=== PATIENT | male | born 1955 | race African-American/Black ===

== ENCOUNTER 2022-10-20 10:34 | Inpatient (IN) | payer OTHER ==
[~2022-10-20] VITALS: Ht 182.9 cm; Wt 69.1 kg
[2022-10-20] MEDS ORDERED: IPRATROPIUM BROM 0.5 MG/2.5ML INH SOL NEB ONE (11:00)
[2022-10-20] MEDS ORDERED: DexAMETHasone 4 MG TAB PO ONE (11:00)
[2022-10-20] MEDS ORDERED: ALBUTEROL SULF 2.5 MG/0.5ML(0.5%) NEB SOLN NEB ONE ×2 (11:00→14:00)
[2022-10-20] MEDS ORDERED: ALBUTEROL MEDNEB 2.5 mg/3ml NEB ONE ×2 (11:04→13:56)
[2022-10-20] MEDS ORDERED: DOXYCYCLINE 100 MG TAB/CAP PO ONE (11:30)
[2022-10-20] MEDS ORDERED: MAGNESIUM SULFATE 1GM/100ML 100 ML IV SCH (11:30)
[2022-10-20 11:32] LABS: Basophils # (auto) 0 10 ^3/uL (0-0.2); Basophils % (auto) 0.5 % (0.0-2.0); Eosinophils # (auto) 0.1 10 ^3/uL (0-0.8); Eosinophils % (auto) 1.1 % (0.0-7.0); Hematocrit 44.5 % (41.0-53.0); Hemoglobin 14.8 g/dL (13.5-17.5); Lymphocytes # (auto) 2.5 10 ^3/uL (0.4-5.4); Lymphocytes % (auto) 26.7 % (10.0-50.0); Mean Corpuscular Hemoglobin 32.8 pg (28.0-32.0); Mean Corpuscular Hgb Conc. 33.2 g/dL (32.0-36.0); Mean Corpuscular Volume 98.7 fL (80.0-100.0); Neutrophils # (auto) 5.9 10 ^3/uL (1.6-8.6); Neutrophils % (auto) 61.7 % (37.0-80.0); Nucleated Red Blood Cells % 0.1 %; Red Blood Cells 4.51 10^6/uL (4.5-5.90); White Blood Cell 9.5 10^3/uL (4.4-10.8)
[2022-10-20 11:53] LABS: Albumin 3.6 g/dL (3.4-5.0); Calcium 8.9 mg/dL (8.5-10.1); Potassium 3.7 mmol/L (3.5-5.1)
[2022-10-20 11:58] LABS: BUN/Creatinine Ratio 15.2
[2022-10-20] MEDS ORDERED: cefTRIAXone 1GM/50ML D5W 50 ML IV SCH (14:15)
[2022-10-20] MEDS ORDERED: LORazepam 0.5 MG TAB PO PRN (14:15)
[2022-10-20] MEDS ORDERED: ACETAMINOPHEN 325 MG TAB PO PRN (14:15)
[2022-10-20] MEDS ORDERED: MORPHINE SULFATE INJ 2 MG/ml SYRG IV PRN (14:15)
[2022-10-20] MEDS ORDERED: SODIUM CHLORIDE 0.9% 1,000 ML IV SCH (14:15)
[2022-10-20] MEDS ORDERED: HYDROcodone-ACET 5/325MG TAB PO PRN (14:15)
[2022-10-20] MEDS ORDERED: AZITHROMYCIN 500MG/ 250ML 250 ML IV SCH (14:15)
[2022-10-20] MEDS ORDERED: ONDANSETRON HCL 4 MG/2 ML VIAL IV PRN (14:15)
[2022-10-20] MEDS ORDERED: DOCUSATE SOD 100 MG CAP PO PRN (14:15)
[2022-10-20] MEDS ORDERED: MAALOX PLUS or MAALOX 30 ML PO PRN (14:15)
[2022-10-20 14:39] VITALS: BP 95/69
[2022-10-20] MEDS ORDERED: DOXY-332 PO (15:53)
[2022-10-20] MEDS ORDERED: IPRATROPIUM BROM 0.5 MG/2.5ML INH SOL NEB SCH (18:00)
[2022-10-20] MEDS ORDERED: ALBUTEROL SULF 2.5 MG/0.5ML(0.5%) NEB SOLN NEB SCH (18:00)
[2022-10-20] MEDS ORDERED: methylPREDNISolone SOD SUCC 40 MG/ML VL IV SCH (22:00)
== END 2022-10-20 16:33 | disposition left against medical advice (07) | DRG 203 ==
LOC: ER 10:34 → TELE 14:13
PROVIDERS: ADMIT Hospitalist; ATTEND Hospitalist
DX: J45.902 Unspecified asthma with status asthmaticus (principal); I10 Essential (primary) hypertension; Z20.822 Contact with and (suspected) exposure to COVID-19; J98.4 Other disorders of lung; Z87.891 Personal history of nicotine dependence
CPT/HCPCS: 36415; 71046; 80053; 83735; 83880; 84484; 85025; 85379; 87426; 93005; 94640; 99291; G0378

== ENCOUNTER → 2024-08-18 | Outpatient (CLI) | payer OTHER ==
[~2024-08-18] MED LIST: DOXY100C79 PO
[2024-08-18 14:59] LABS: Basophils # (auto) 0.1 10 ^3/uL (0-0.2); Basophils % (auto) 1.2 % (0.0-2.0); Monocytes # (auto) 0.8 10 ^3/uL (0-1.3)
[2024-08-18 15:01] LABS: Eosinophils # (auto) 0.1 10 ^3/uL (0-0.8); Eosinophils % (auto) 0.8 % (0.0-7.0); Hematocrit 42.4 % (41.0-53.0); Hemoglobin 14.3 g/dL (13.5-17.5); Lymphocytes # (auto) 2.5 10 ^3/uL (0.4-5.4); Lymphocytes % (auto) 32.2 % (10.0-50.0); Mean Corpuscular Hemoglobin 34.4 pg (28.0-32.0); Mean Corpuscular Hgb Conc. 33.8 g/dL (32.0-36.0); Mean Corpuscular Volume 101.9 fL (80.0-100.0); Monocytes % (auto) 10.5 % (0.0-12.0); Neutrophils # (auto) 4.3 10 ^3/uL (1.6-8.6); Neutrophils % (auto) 55.3 % (37.0-80.0); Platelet Count (auto) 171 10^3/uL (140-450); Red Blood Cells 4.16 10^6/uL (4.5-5.90); Red Cell Distribution Width 13.1 % (11.8-14.3); White Blood Cell 7.8 10^3/uL (4.4-10.8)
[2024-08-18 15:34] LABS: Albumin 4.2 g/dL (3.2-4.8); Alkaline Phosphatase 85 U/L (46-116); Anion Gap 5 (5-15); BUN/Creatinine Ratio 16.7 (10.0-20.0); Blood Urea Nitrogen 19 mg/dL (9-23); Calcium 9.9 mg/dL (8.7-10.4); Chloride 103 mmol/L (98-107); Cholesterol 164 mg/dL (< 200); Glucose 87 mg/dL (74-106); LDL Cholesterol 74 mg/dL (< 100); Potassium 3.7 mmol/L (3.5-5.1); Sodium 143 mmol/L (136-145); Triglycerides 117 mg/dL (< 150)
[2024-08-18 15:37] LABS: Alanine Aminotransferase 166 U/L (7-40); Aspartate Aminotransferase 144 U/L (13-40); Carbon Dioxide 35 mmol/L (20-31); Folate (Folic Acid) 20.39 ng/mL (>5.38); HDL Cholesterol 62 mg/dL (40-59); Total Protein 8.3 g/dL (5.7-8.2)
[2024-08-18 15:46] LABS: Uric Acid 7.6 mg/dL (3.7-9.2)
== END | disposition home or self-care (01) ==
LOC: LAB 14:06
PROVIDERS: ATTEND Internal Medicine
DX: D51.9 Vitamin B12 deficiency anemia, unspecified (principal); E55.9 Vitamin D deficiency, unspecified; R68.89 Other general symptoms and signs; E61.2 Magnesium deficiency; R94.6 Abnormal results of thyroid function studies; E79.0 Hyperuricemia without signs of inflammatory arthritis and tophaceous disease; R73.09 Other abnormal glucose; R82.90 Unspecified abnormal findings in urine
CPT/HCPCS: 36415; 80053; 80061; 82306; 82607; 82746; 84443; 84550; 85025

== ENCOUNTER 2024-09-23 00:16 | Inpatient (IN) | payer OTHER ==
[2024-09-23] VITALS (13 sets, daily range): BP systolic 112–140; BP diastolic 58–88; PULSE 61–86; RESP 14–20; TEMP 36.7; O2SAT 93–99
[~2024-09-23] VITALS: Ht 185.4 cm; Wt 72.7 kg
[2024-09-23] MEDS ORDERED: ASPirin 81 mg TAB PO ONE (00:45)
[2024-09-23 01:05] LABS: Basophils # (auto) 0 10 ^3/uL (0-0.2); Basophils % (auto) 0.1 % (0.0-2.0); Eosinophils # (auto) 0.1 10 ^3/uL (0-0.8); Eosinophils % (auto) 1.5 % (0.0-7.0); Hemoglobin 12.4 g/dL (13.5-17.5); Lymphocytes # (auto) 2.4 10 ^3/uL (0.4-5.4); Lymphocytes % (auto) 26.2 % (10.0-50.0); Mean Corpuscular Hgb Conc. 32.6 g/dL (32.0-36.0); Mean Corpuscular Volume 101.1 fL (80.0-100.0); Monocytes # (auto) 0.8 10 ^3/uL (0-1.3); Neutrophils # (auto) 5.8 10 ^3/uL (1.6-8.6); Neutrophils % (auto) 63.2 % (37.0-80.0); Nucleated Red Blood Cells % 0.1 %; Platelet Count (auto) 145 10^3/uL (140-450); Red Blood Cells 3.76 10^6/uL (4.5-5.90); Red Cell Distribution Width 12.8 % (11.8-14.3); White Blood Cell 9.1 10^3/uL (4.4-10.8)
--- NOTE | 2024-09-23 01:11 | ED.PDOC ---
History of Present Illness HPI Comments 69 y/o M, with a Hx of asthma, COPD w/3LPM home O2, HTN, and former tobacco abuse, is BIBA for c/o epigastric abdominal and sternal chest pain, shortness of breath, and nonproductive cough, today. Patient endorses on being short of breath "all the time" and called EMS, primarily, due to being no longer able to tolerate pain that has been constant since initial, unprovoked onset 2 weeks ago. He comments on pain being a 10/10 in severity. Per EMS report, patient was found on scene outside his house without his O2, with labored breathing and expiratory wheezes, a respiratory rate fo 26, a SpO2 of 90%RA, and a blood pressure of 70/42. En route, patient was given 2x DuoNebulizer breathing treatments and 600ml normal saline bolus (blood pressure improved, temporarily, to a systolic value of 90 prior to returning to initial value he was found with). Upon arrival to ED, patient endorses on breathing difficulty resolving but still complains of pain. He also comments on using his inhaler, earlier, to no relief or improvement with difficulty breathing. He endorses on no recent travel, sick contact, strenuous activities, or other additional relevant or pertinent information. Patient denies having any nausea, vomiting, palpitations, fever, chills, or other associated symptoms or modifiers at this time. Chief Complaint: Shortness of Breath Time Seen by MD: 00:30 Reviewed Notes: Nurses Notes, Fountain Manager Notes, Medications, Allergies Allergies: Coded Allergies: Aspirin (Verified Allergy, Unknown, nausea , 10/20/22) Ibuprofen (Verified Allergy, Unknown, nausea , 10/20/22) Home Meds Active Scripts Doxycycline (Monohydrate) (Doxycycline) 100 Mg Cap, 100 MG PO BID for 5 Days, #10 CAP Prov:ANNITA LAMBERT MD 10/20/22 Information Source: Patient, Emergency Med Personnel Mode of Arrival: EMS Severity: Moderate Timing: Weeks Duration: Since onset Prehospital treatment: 12 Lead EKG, Breathing Tx, Medical Doctor Nuclear Medicine, IVF Review of Systems: REVIEW OF SYSTEMS: No fever, no chills, or fatigue HEENT: No sore throat, no earache, no congestion, no neck pain. Cardiac: Sternal chest pain. No palpitations. Lungs: Shortness of breath, no cough. GI: Epigastric abdominal pain, no nausea, no vomiting, no diarrhea, no constipation. : No dysuria, frequency, or urgency. No hematuria. Musculoskeletal: No joint pain , no joint swelling, no extremity edema. Skin: No rash, no itching. Neuro: No headache, no dizziness, no weakness Vital Signs Vital Signs Date Time Temp Pulse Resp B/P (MAP) Pulse Ox O2 Delivery O2 Flow Rate FiO2 09/23/24 04:15 18 98 Nasal Cannula* 3 32 09/23/24 04:00 73 136/68 (90) 09/23/24 01:51 98.3 98.3 Physical Exam General: Awake, alert and oriented. No acute distress. Skin: Skin in warm, dry and intact. Appropriate color for ethnicity. Nailbeds pink with no cyanosis. HEENT: The head is normocephalic and atraumatic. Conjunctivae are clear without exudates or hemorrhage. Sclera is non-icteric. EOM are intact. No signs of nystagmus. Eyelids are normal in appearance without swelling or lesions. Oral mucosa is pink and moist Neck: The neck is supple with normal range of motion. No JVD. Cardiac: Heart rate and rhythm are normal. No murmurs, gallops, or rubs are auscultated. Sternal chest wall tenderness. Respiratory: No signs of respiratory distress. Lung sounds are clear in all lobes bilaterally without rales, ronchi, or wheezes. Abdominal: Epigastric tenderness. Abdomen is otherwise soft, without distention. Bowel sounds are present and normoactive in all four quadrants. Extremities: Upper and lower extremities are atraumatic in appearance without deformity or edema. Neurological: The patient is awake, alert and oriented to person, place, and time with normal speech. Speech is clear. There is no facial asymmetry. Psychiatric: Appropriate mood and affect. Good judgement and insight. No visual or auditory hallucinations. Past Medical History PAST MEDICAL HISTORY: Asthma, COPD (w/3LPM home O2 ), HTN Surgical History: Denies all surgeries Family History Family History: Reviewed,noncontributory to illness Social History Smoker: Quit Less Than 1 Year, Cigarettes Alcohol: Denies ETOH Use Drugs: Denies Drug Use Lives In: Home Was a procedure done? Was a procedure done?: No EKG EKG : Pulse Rate (adult): 96 [place]: Normal Cardiac Rhythm: NSR Block: None Hypertrophy: None ST: Normal Differential Dx Considerations may include: gastritis, gastroenteritis, PUD, GERD, spoiled food, viral syndrome, FL, PE, PNA, COPD exacerbation, angina, asthma exacerbation, pericarditis X-Ray, Labs, Meds, VS Vital Signs Date Time Temp Pulse Resp B/P (MAP) Pulse Ox O2 Delivery O2 Flow Rate FiO2 09/23/24 04:15 18 98 Nasal Cannula* 3 32 09/23/24 04:00 73 16 136/68 (90) 95 09/23/24 01:53 86 14 99 Nasal Cannula* 3 32 09/23/24 01:51 98.3 80 14 103/57 (72) 98 98.3 09/23/24 01:11 96 09/23/24 00:28 98.6 98 26 79/43 (55) 95 09/23/24 00:23 96 Lab Test 09/23/24 03:37 09/23/24 03:00 09/23/24 01:44 09/23/24 00:48 Range/Units Troponin I High Sensitivity 5 4 4 </=54 ng/L Lactic Acid Level 1.4 2.1 *H 0.4-2.0 mmol/L White Blood Count 9.1 4.4-10.8 10^3/uL Red Blood Count 3.76 L 4.5-5.90 10^6/uL Hemoglobin 12.4 L 13.5-17.5 g/dL Hematocrit 38.0 L 41.0-53.0 % Mean Corpuscular Volume 101.1 H 80.0-100.0 fL Mean Corpuscular Hemoglobin 33.0 H 28.0-32.0 pg Mean Corpuscular Hemoglobin Concent 32.6 32.0-36.0 g/dL Red Cell Distribution Width 12.8 11.8-14.3 % Platelet Count 145 140-450 10^3/uL Mean Platelet Volume 9.6 6.9-10.8 fL Neutrophils (%) (Auto) 63.2 37.0-80.0 % Lymphocytes (%) (Auto) 26.2 10.0-50.0 % Monocytes (%) (Auto) 9.0 0.0-12.0 % Eosinophils (%) (Auto) 1.5 0.0-7.0 % Basophils (%) (Auto) 0.1 0.0-2.0 % Neutrophils # (Auto) 5.8 1.6-8.6 10 ^3/uL Lymphocytes # (Auto) 2.4 0.4-5.4 10 ^3/uL Monocytes # (Auto) 0.8 0-1.3 10 ^3/uL Eosinophils # (Auto) 0.1 0-0.8 10 ^3/uL Basophils # (Auto) 0 0-0.2 10 ^3/uL Nucleated Red Blood Cells 0.1 % Sodium Level 144 136-145 mmol/L Potassium Level 4.0 3.5-5.1 mmol/L Chloride Level 106 98-107 mmol/L Carbon Dioxide Level 33 H 20-31 mmol/L Anion Gap 5 5-15 Blood Urea Nitrogen 23 9-23 mg/dL Creatinine 1.26 0.700-1.30 mg/dL Glomerular Filtration Rate Calc 61 >90 mL/min BUN/Creatinine Ratio 18.3 10.0-20.0 Serum Glucose 113 H 74-106 mg/dL Calcium Level 9.3 8.7-10.4 mg/dL Total Bilirubin 0.5 0.2-1.0 mg/dL Aspartate Amino Transferase (AST) 82 H 13-40 U/L Alanine Aminotransferase (ALT) 100 H 7-40 U/L Alkaline Phosphatase 70 46-116 U/L B-Type Natriuretic Peptide 11.90 0-100 pg/mL Total Protein 6.6 5.7-8.2 g/dL Albumin 3.5 3.2-4.8 g/dL Current Medications Medications (Trade) Dose Ordered Sig/[place] Route Start Time Stop Time Status Last Admin Sodium Chloride 1,000 ml @ 1,000 mls/hr Q1H ONCE IV 09/23/24 00:45 09/23/24 01:44 DC 09/23/24 01:35 Al Hydrox/Mg Hydrox/Simethicone (Maalox Plus) 30 ml ONCE ONCE PO 09/23/24 01:00 09/23/24 01:01 DC 09/23/24 01:34 Lidocaine HCl (Xylocaine 2% Viscous) 10 ml ONCE ONCE PO 09/23/24 01:00 09/23/24 01:01 DC 09/23/24 01:34 Ceftriaxone Sodium 50 ml @ 100 mls/hr ONCE ONCE IV 09/23/24 03:15 09/23/24 03:44 DC 09/23/24 03:29 Albuterol (Ventolin Medneb) 2.5 mg ONCE ONCE NEB 09/23/24 04:15 09/23/24 04:16 DC 09/23/24 04:[address] [address] Ph: [phone] DIAGNOSTIC IMAGING Diagnostic Imaging Report : [id number] Signed PATIENT: YUSUF APARICIO ACCT: [id number] UNIT: [id number] : 1955 LOC: ER ROOM / BED: / AGE / SEX: 69 / M ADM STATUS: REG ER SERVICE ORDERING PHYSICIAN: ADRIANNA ROE MD PROCEDURE(s): CXR1 - CHEST XRAY 1 VIEW REASON: cp ORDER NUMBER(s): [id number], ACCESSION NUMBER(s): [id number] Examination: CXR1 Clinical Indication: cp. Comparison: None. Technique: Frontal radiograph of the chest was obtained. Findings: Limited evaluation, due to patients body habitus. Inhomogeneous radiopacities in right lower lung, suggestive of patchy consolidation. No pleural effusion on either side in current study. There is no pneumothorax. No evidence of cardiomegaly. Ectatic thoracic aorta. No acute osseous abnormality is seen. Impression: Patchy consolidation in right lower lung. Advised further evaluation with CT chest without contrast, if clinically indicated. Electronically Signed 09/23/2024 02:23 Damon Tadeo ATED BY: CARLYLE RESENDIZ MD DICTATED DATE/TIME: 09/23/24222 SIGNED BY: CARLYLE RESENDIZ MD SIGNED DATE/TIME: 09/23/24222 CC: Time of 1ST Reevaluation: 01:00 Reevaluation 1ST: Unchanged Patient Education/Counseling: Diagnosis, Treatment Family Education/Counseling: No Family Present Departure 1 Departure Time of Disposition: 04:07 Impression: Primary Impression: Pneumonia Disposition: 09 ADMITTED INPATIENT Condition: Stable Comments 69-year-old male who presented with shortness of breath, chest x-ray suggestive of pneumonia. Antibiotics and fluids initiated. Lactic acid mildly elevated. Patient admitted for further treatment, evaluation and monitoring. Critical Care Note Critical Care Time?: No Stability Stability form required: No Heart Score Heart Score: Heart Score Response (Comments) Value History N/A 0 EKG N/A 0 Age N/A 0 Risk Factors N/A 0 Troponin N/A 0 Total 0 I personally scribed for ADRIANNA ROE MD ([email or web address]) on 09/23/24 at 01:11. Electronically submitted by Gregory Beth ([email or web address]). I personally scribed for ADRIANNA ROE MD ([email or web address]) on 09/23/24 at 03:38. Electronically submitted by Gregory Beth [email or web address]). ADRIANNA ROE MD Sep 23, 2024 01:11
[2024-09-23 01:20] LABS: Albumin 3.5 g/dL (3.2-4.8); Alkaline Phosphatase 70 U/L (46-116); Anion Gap 5 (5-15); BUN/Creatinine Ratio 18.3 (10.0-20.0); Calcium 9.3 mg/dL (8.7-10.4); Chloride 106 mmol/L (98-107); Sodium 144 mmol/L (136-145)
[2024-09-23 01:21] LABS: Bilirubin, Total 0.5 mg/dL (0.2-1.0); Total Protein 6.6 g/dL (5.7-8.2)
[2024-09-23 01:34] LABS: Alanine Aminotransferase 100 U/L (7-40); Aspartate Aminotransferase 82 U/L (13-40); Blood Urea Nitrogen 23 mg/dL (9-23); Carbon Dioxide 33 mmol/L (20-31); Glucose 113 mg/dL (74-106)
[2024-09-23] MEDS: MAALOX PLUS or MAALOX 30 ML PO ONE (01:34)
[2024-09-23] MEDS: LIDOCAINE VISCOUS 2% 15ML UD PO ONE (01:34)
[2024-09-23] MEDS: SODIUM CHLORIDE 0.9% 1,000 ML IV ONE (01:35)
[2024-09-23 01:36] LABS: Lactic Acid w/Reflex 2.1 mmol/L (0.4-2.0)
--- NOTE | 2024-09-23 02:25 | DVH ---
Examination: CXR1 Clinical Indication: cp. Comparison: None. Technique: Frontal radiograph of the chest was obtained. Findings: Limited evaluation, due to patients body habitus. Inhomogeneous radiopacities in right lower lung, suggestive of patchy consolidation. No pleural effu daniel on either side in current study. There is no pneumothorax. No evidence of cardiomegaly. Ectatic thoracic aorta. No acute osseous abnormality is seen. Impression: Patchy consolidation in right lower lung. Advised further evaluation with CT chest without contrast, if clinically indicated. Electronically Signed 09/23/2024 02:23 Damon Tadeo
[2024-09-23] MEDS: IOHEXOL 350 MG/ML 100ML IJ ONE (02:30)
[2024-09-23] MEDS: cefTRIAXone 1GM/50ML D5W 50 ML IV ONE (03:29)
--- NOTE | 2024-09-23 04:01 | DVH ---
Examination: CTACH CLINICAL INDICATION: Aorta . COMPARISON: None. CONTRAST USED: Intravenous. TECHNIQUE: Axial images were obtained through the thorax with contrast. Appropriate 3D, MPR, CMPR, thick and thin MIP and VRT view were obtained from multiple phase reconstructions. CT scan done accor ding to ALARA (As Low as Reasonably Achievable). Multiplanar reconstructions were obtained. FINDINGS: Lower neck and thyroid: Appears normal. The aorta appears normal. No evidence of aneurysm or dissection is seen. No mediastinal masses or lymphadenopathy is seen. Central pulmonary arteries appear unremarkable. The right and left main pulmonary arteries appear no rmal. No evidence of filling defect is seen. Centriacinar and paraseptal emphysematous changes are seen in both lungs. Few subpleural bullae are seen in both upper lobes. Rest of the lung parenchyma appears unremarkable. No pleural effusion is seen. No pericardial effusion is seen. Degenerative changes are seen in the thoracic spine. Visualized Upper Abdomen: Visualized upper abdominal structures appear unremarkable. Gallbladder: Appears normal. No radiopaque calculi. Adrenal glands: Appear normal. No obvious nodule. Liver: Appears normal. No obvious focal lesion. Spleen: Appears normal. Pancreas: Appears normal. Kidneys: Appear normal. IMPRESSION: 1. No evidence of pulmonary arterial thromboembolism. 2. No evidence of aortic aneurysm or dissection is seen. 3. Centriacinar and paraseptal emphysematous changes are seen in both lungs. 4. Few subpleural bullae are seen in both upper lobes. 5. Additional chronic and/or ancillary findings as detailed above. 6. Suggest clinical correlation and follow-up as clinically deemed necessary. Electronically Signed 09/23/2024 04:01 Damon Tadeo
[2024-09-23] MEDS: ALBUTEROL SULF 2.5 MG/0.5ML(0.5%) NEB SOLN NEB ONE (04:23)
[2024-09-23] MEDS ORDERED: NITROGLYCERIN 0.4 MG SL TAB SL PRN (05:30)
--- NOTE | 2024-09-23 05:44 | DVHHPRES ---
History of Present Illness Resident Creating Document: CRYSTAL BARRERA RESDIENT History of Present Illness This is a 69-year-old male with past medical history of COPD (on 3 L of oxygen at home), asthma, hypertension, presented to the hospital with shortness of platelet chest pain. Patient has chronic shortness of breath, which has worsened since 1 days which was associated with a active cough, weakness and nausea. The patient also complained of epigastric pain since 2 weeks, which is burning in nature, /10, with no radiation. The patient is using ibuprofen for the body pain. Patient denies fever, vomiting chest pain, headache, visual change, and any recent sick contact. PMHx: COPD, asthma, hypertension PSHx: Noncontributory Social history: Patient lives at home with family Home medication: Lisinopril, amlodipine, rescue inhaler, montelukast, gabapentin, ibuprofen, oxycodone, PCP: Dr. Froylan Purvis Review of Systems Review of Systems General: Reports generalized weakness HEENT: No headaches, visiual changes, hearing loss, tinnitus, nasal congestion and discharge, and sore throat. Cardiovascular: Denies chest pain, palpitations, dyspnea on exertion, orthopnea, or claudication. Respiratory: Reports shortness of breaths, productive cough Gastrointestinal: Reports epigastric pain Genitourinary: No dysuria, hematuria, discharge, frequency, urgency, nocturia, incontinence, and urinary retention. Endocrine: No heat or cold intolerance, polydipsia, polyuria, and polyphagia. Neurological: No dizziness, extremity weakness and numbness, tremors, gait disturbance, seizures, and memory impairment. Psychiatric: Denies depression, anxiety,or insomnia. Musculoskeletal: Denies neck pain, stiffness and swelling, back pain, muscle weakness, joint pain, stiffness, swelling, or limited range of motion. Allergies: Coded Allergies: Aspirin (Verified Allergy, Unknown, nausea , 10/20/22) Ibuprofen (Verified Allergy, Unknown, nausea , 10/20/22) Medications Current Medications Medications Dose Ordered Sig/[place] Route Start Time Stop Time Status Last Admin Dose Admin Nitroglycerin 0.4 mg Q5MINP PRN SL 09/23/24 05:30 UNV Exam Vital Signs Vital Signs Date Time Temp Pulse Resp B/P (MAP) Pulse Ox O2 Delivery O2 Flow Rate FiO2 09/23/24 04:15 18 98 Nasal Cannula* 3 32 09/23/24 04:00 73 136/68 (90) 09/23/24 01:51 98.3 98.3 Exam General Appearance: Alert, Oriented X3, Cooperative, No acute distress HEENT: Atraumatic, PERRLA, EOMI, Mucous membrane moist/pink Respiratory: Bilateral lower zone crackles Cardiovascular: Regular rate, Normal S1, Normal S2, No murmurs, no chest wall tenderness Abdominal: Epigastric tenderness Extremities: No clubbing, No cyanosis, No edema, Normal pulses, No tenderness/swelling Skin: No rashes, No breakdown, No significant lesion Neuro: Normal gait, Normal speech, Strength at 5/5 X4 ext, Normal tone, Sensation intact, Cranial nerves 3-12 NL, Reflexes 2+ Psych/Mental Status: Mental status NL, Mood NL Labs/Xrays Labs Test 09/23/24 03:37 09/23/24 03:00 09/23/24 00:48 Range/Units Troponin I High Sensitivity 5 </=54 ng/L Lactic Acid Level 1.4 0.4-2.0 mmol/L White Blood Count 9.1 4.4-10.8 10^3/uL Red Blood Count 3.76 L 4.5-5.90 10^6/uL Hemoglobin 12.4 L 13.5-17.5 g/dL Hematocrit 38.0 L 41.0-53.0 % Mean Corpuscular Volume 101.1 H 80.0-100.0 fL Mean Corpuscular Hemoglobin 33.0 H 28.0-32.0 pg Mean Corpuscular Hemoglobin Concent 32.6 32.0-36.0 g/dL Red Cell Distribution Width 12.8 11.8-14.3 % Platelet Count 145 140-450 10^3/uL Mean Platelet Volume 9.6 6.9-10.8 fL Neutrophils (%) (Auto) 63.2 37.0-80.0 % Lymphocytes (%) (Auto) 26.2 10.0-50.0 % Monocytes (%) (Auto) 9.0 0.0-12.0 % Eosinophils (%) (Auto) 1.5 0.0-7.0 % Basophils (%) (Auto) 0.1 0.0-2.0 % Neutrophils # (Auto) 5.8 1.6-8.6 10 ^3/uL Lymphocytes # (Auto) 2.4 0.4-5.4 10 ^3/uL Monocytes # (Auto) 0.8 0-1.3 10 ^3/uL Eosinophils # (Auto) 0.1 0-0.8 10 ^3/uL Basophils # (Auto) 0 0-0.2 10 ^3/uL Nucleated Red Blood Cells 0.1 % Sodium Level 144 136-145 mmol/L Potassium Level 4.0 3.5-5.1 mmol/L Chloride Level 106 98-107 mmol/L Carbon Dioxide Level 33 H 20-31 mmol/L Anion Gap 5 5-15 Blood Urea Nitrogen 23 9-23 mg/dL Creatinine 1.26 0.700-1.30 mg/dL Glomerular Filtration Rate Calc 61 >90 mL/min BUN/Creatinine Ratio 18.3 10.0-20.0 Serum Glucose 113 H 74-106 mg/dL Calcium Level 9.3 8.7-10.4 mg/dL Total Bilirubin 0.5 0.2-1.0 mg/dL Aspartate Amino Transferase (AST) 82 H 13-40 U/L Alanine Aminotransferase (ALT) 100 H 7-40 U/L Alkaline Phosphatase 70 46-116 U/L B-Type Natriuretic Peptide 11.90 0-100 pg/mL Total Protein 6.6 5.7-8.2 g/dL Albumin 3.5 3.2-4.8 g/dL Assessment/Plan Assessment/Plan Acute exacerbation of COPD Pneumonia, likely due to Gram-positive Gram-negative bacterial/viral chronic hypoxic respiratory, likely due to COPD Sepsis, likely due to pneumonia History of asthma Chest x-ray, shows patchy consolidation in right lower lung Chest CT scan shows, centriacinar and paraseptal emphysematous changes are seen in both lungs and few subpleural bullae are seen in both upper lobes Check MRSA nares, COVID-19, flu, blood/sputum culture Empiric antibiotic azithromycin and ceftriaxone Breathing treatment q.4 hours Methylprednisolone 40 mg daily Continue montelukast IV fluids Possoble Gastritis, likely due to Ibuprofen Discontinue Ibuprofen Protonix History of hypertension Held antihypertensive medication, due to low BP Transaminitis, monitoring Mild anemia, hypochromic microcytic Ruled out pulmonary emboli Chest CT shows no pulmonary emboli DIET: Cardiac diet DVT PROPHYLAXIS: Lovenox GI PROPHYLAXIS:: Protonix CODE STATUS: Goal of care discussed with the and 21 minutes, full code DISPOSITION: Med/surge Patient's status discussed with the patient Case discussed with Dr. Ratliff Plan discussed with: Patient, Other (RN) My Orders Orders - CRYSTAL BARRERA RESDIVERNON Procedure Category Date Status Time Admit ADMIT 09/23/24 Transmitted 05:25 Nitroglycerin PHA 09/23/24 Logged Sublingual (Ntrostat 05:30 Oxygen By Nasal RT 09/23/24 Transmitted Cannula 05:25 Stat Ekg For Chest RUFINA 09/23/24 In Process Pain 05:25 Ceftriaxone Ivpb PHA 09/23/24 Verified Rocephin 09:00 Azithromycin 500mg/ PHA 09/23/24 Verified 250ml (Zithromax 50 10:00 Ipratropium Medneb PHA 09/23/24 Verified (Atrovent Medneb) 06:00 Montelukast Tablet PHA 09/23/24 Verified (Singulair Tablet) 22:00 Montelukast Tablet PHA 09/23/24 Verified (Singulair Tablet) 05:30 Enoxaparin Sodium PHA 09/23/24 Verified (Lovenox) 10:00 Pantoprazole PHA 09/23/24 Verified (Protonix) 10:00 Methylprednisolone PHA 09/23/24 Verified Sod Succ (Solu Medrol 10:00 Covid19 Antigen [facility] LAB 09/23/24 Verified Rapid Influenza A&B LAB 09/23/24 Transmitted 05:26 Urinalysis LAB 09/23/24 Verified 05:26 Mrsa Screen DONALD 09/23/24 Verified 05:26 Respiratory Culture DONALD 09/23/24 Verified W/ Gs 05:26 Cardiac DIET 09/23/24 Verified Diet-2gna,Lofat,Lochol Breakfast Hydrocodone-Acet PHA 09/23/24 Verified 5/325mg Tab ([place] 05:30 Date of Service: Sep 23, 2024 Billing Provider: CAROLYN RATLIFF MD Common Visit Codes: 88030-LLXNGWP INP/OBS CARE (HIGH) Secondary Visit Codes: 30028-[id number] CARE PLAN 30 MINUTES HOLLYKAIDENMEI RESDIENT Sep 23, 2024 05:44 CAROLYN RATLIFF MD Sep 23, 2024 08:27
[2024-09-23] MEDS: IPRATROPIUM BROM 0.5 MG/2.5ML INH SOL NEB SCH (06:13)
[2024-09-23] MEDS: MONTELUKAST SODIUM 10 MG TAB PO ONE (06:37)
[2024-09-23 06:42] LABS: COVID19 ANTIGEN SOFIA FIA NEGATIVE (NEGATIVE)
[2024-09-23 06:43] LABS: Rapid Influenza A Negative (Negative)
[2024-09-23 06:45] LABS: Rapid Influenza B Positive (Negative)
[2024-09-23] MEDS: methylPREDNISolone SOD SUCC 40 MG/ML VL IV SCH (08:19)
[2024-09-23] MEDS: PANTOPRAZOLE 40 MG/10 ML VIAL INJ IV SCH (08:20)
[2024-09-23] MEDS: ENOXAPARIN SOD 40 MG/0.4 ML SYRINGE SC SCH (08:20)
[2024-09-23] MEDS: HYDROcodone-ACET 5/325MG TAB PO PRN (08:20)
--- NOTE | 2024-09-23 09:49 | ECG ---
[facility] Test Date: 2024-09-23 Test Time: 00:23:47 Pat Name: YUSUF APARICIO Department: ED Room: [address] [place] [address] Gender: M Extension Service Specialist: POLLY : 1955 Requested By: ADRIANNA ROE Order Number: [id number] Reading MD: Measurements Intervals [place] Rate: 96 P: 73 UT: 135 QRS: 73 QRSD: 80 T: 70 QT: 346 QTc: 438 Interpretive Statements Sinus rhythm Multiple premature complexes, vent & supraven Please click the below link to view image of tracing.
[2024-09-23] MEDS ORDERED: AZITHROMYCIN 500MG/ 250ML 250 ML IV SCH (10:00)
[2024-09-23] MEDS ORDERED: OSELTAMIVIR 75 MG CAP PO SCH (10:00)
[2024-09-23] MEDS: OSELTAMIVIR 30 MG CAP PO SCH (10:26)
[2024-09-23 12:08] LABS: Basophils # (auto) 0 10 ^3/uL (0-0.2); Basophils % (auto) 0.5 % (0.0-2.0); Eosinophils # (auto) 0 10 ^3/uL (0-0.8); Eosinophils % (auto) 0.7 % (0.0-7.0); Hematocrit 37.2 % (41.0-53.0); Hemoglobin 12.2 g/dL (13.5-17.5); Lymphocytes # (auto) 0.7 10 ^3/uL (0.4-5.4); Mean Corpuscular Hemoglobin 32.9 pg (28.0-32.0); Mean Corpuscular Hgb Conc. 32.8 g/dL (32.0-36.0); Mean Corpuscular Volume 100.5 fL (80.0-100.0); Monocytes # (auto) 0.2 10 ^3/uL (0-1.3); Monocytes % (auto) 2.4 % (0.0-12.0); Neutrophils # (auto) 5.4 10 ^3/uL (1.6-8.6); Neutrophils % (auto) 85.4 % (37.0-80.0); Nucleated Red Blood Cells % 0.1 %; Platelet Count (auto) 145 10^3/uL (140-450); White Blood Cell 6.4 10^3/uL (4.4-10.8)
[2024-09-23 12:25] LABS: Albumin 3.4 g/dL (3.2-4.8); Alkaline Phosphatase 61 U/L (46-116); Anion Gap 4 (5-15); BUN/Creatinine Ratio 16.2 (10.0-20.0); Bilirubin, Total 0.6 mg/dL (0.2-1.0); Blood Urea Nitrogen 18 mg/dL (9-23); Calcium 8.9 mg/dL (8.7-10.4); Chloride 104 mmol/L (98-107); Potassium 4.4 mmol/L (3.5-5.1); Sodium 141 mmol/L (136-145); Total Protein 6.4 g/dL (5.7-8.2)
[2024-09-23 12:26] LABS: Alanine Aminotransferase 94 U/L (7-40); Aspartate Aminotransferase 73 U/L (13-40); Carbon Dioxide 33 mmol/L (20-31); Glucose 208 mg/dL (74-106)
[2024-09-23] MEDS ORDERED: HYDR-4902 PO (14:52)
[2024-09-23] MEDS ORDERED: OSEL6SUS5 PO (14:59)
[2024-09-23] MEDS ORDERED: AZIT500T66 PO (14:59)
[2024-09-23] MEDS ORDERED: PANT40TA2 PO (14:59)
[2024-09-23] MEDS ORDERED: PRED20TA2 PO (14:59)
--- NOTE | 2024-09-23 19:08 | DVHDSRES ---
Discharge Summary Date of Admission Resident Creating Document: CRYSTAL BARRERA RESDIENT Sep 23, 2024 at 05:25 Date of Discharge: Sep 23, 2024 Admitting Diagnosis Acute exacerbation of chronic COPD Wounds: No wound was present Labs/Diagnostic Data: Laboratory Results Test 09/23/24 11:52 09/23/24 05:55 09/23/24 03:37 09/23/24 03:00 White Blood Count 6.4 10^3/uL (4.4-10.8) Red Blood Count 3.70 10^6/uL (4.5-5.90) Hemoglobin 12.2 g/dL (13.5-17.5) Hematocrit 37.2 % (41.0-53.0) Mean Corpuscular Volume 100.5 fL (80.0-100.0) Mean Corpuscular Hemoglobin 32.9 pg (28.0-32.0) Mean Corpuscular Hemoglobin Concent 32.8 g/dL (32.0-36.0) Red Cell Distribution Width 13.0 % (11.8-14.3) Platelet Count 145 10^3/uL (140-450) Mean Platelet Volume 9.9 fL (6.9-10.8) Neutrophils (%) (Auto) 85.4 % (37.0-80.0) Lymphocytes (%) (Auto) 11.0 % (10.0-50.0) Monocytes (%) (Auto) 2.4 % (0.0-12.0) Eosinophils (%) (Auto) 0.7 % (0.0-7.0) Basophils (%) (Auto) 0.5 % (0.0-2.0) Neutrophils # (Auto) 5.4 10 ^3/uL (1.6-8.6) Lymphocytes # (Auto) 0.7 10 ^3/uL (0.4-5.4) Monocytes # (Auto) 0.2 10 ^3/uL (0-1.3) Eosinophils # (Auto) 0 10 ^3/uL (0-0.8) Basophils # (Auto) 0 10 ^3/uL (0-0.2) Nucleated Red Blood Cells 0.1 % Sodium Level 141 mmol/L (136-145) Potassium Level 4.4 mmol/L (3.5-5.1) Chloride Level 104 mmol/L (98-107) Carbon Dioxide Level 33 mmol/L (20-31) Anion Gap 4 (5-15) Blood Urea Nitrogen 18 mg/dL (9-23) Creatinine 1.11 mg/dL (0.700-1.30) Glomerular Filtration Rate Calc 71 mL/min (>90) BUN/Creatinine Ratio 16.2 (10.0-20.0) Serum Glucose 208 mg/dL (74-106) Calcium Level 8.9 mg/dL (8.7-10.4) Magnesium Level 1.6 mg/dL (1.6-2.6) Total Bilirubin 0.6 mg/dL (0.2-1.0) Aspartate Amino Transferase (AST) 73 U/L (13-40) Alanine Aminotransferase (ALT) 94 U/L (7-40) Alkaline Phosphatase 61 U/L (46-116) Total Protein 6.4 g/dL (5.7-8.2) Albumin 3.4 g/dL (3.2-4.8) Lipase 43 U/L (12-53) Influenza Type A Antigen Negative (Negative) Influenza Type B Antigen Positive (Negative) SARS-CoV-2 Antigen (Rapid) Negative (NEGATIVE) Troponin I High Sensitivity 5 ng/L (</=54) Lactic Acid Level 1.4 mmol/L (0.4-2.0) Test 09/23/24 00:48 B-Type Natriuretic Peptide 11.90 pg/mL (0-100) Other Laboratory Tests 09/23/24 11:52 Brief Hx & Hospital Course: This is a 69-year-old male with past medical history of COPD (on 3 L of oxygen at home), asthma, hypertension, presented to the hospital with shortness of breath and epigarstric pain. Patient has chronic shortness of breath, which has worsened since 1 days which was associated with a active cough, weakness and nausea. The patient also complained of epigastric pain since 2 weeks, which is burning in nature, 03/18, with no radiation. The patient is using ibuprofen for the body pain. CT angio revealed no evidence of pulmonary arterial thromboembolism and there is centriacinar and paraseptal emphysematous changes seen in both lungs and few subpleural pleura are seen in both upper lobes. influenza flu B is positive. The patient was treated with med neb with albuterol and ipratropium q.6 p.r.n., IV ceftriaxone 1 g daily, IV azithromycin 500 mg daily , IV methylprednisolone 40 mg daily and Tamiflu 30 mg b.i.d. and also resumed his home meds. Discharge plan was discussed with the patient and all questions were answered. Patient is being discharged to home. Discharge diagnosis Acute exacerbation of COPD Pneumonia, likely due to Gram-positive Gram-negative bacterial/viral chronic hypoxic respiratory, likely due to COPD Sepsis, likely due to pneumonia History of asthma History of hypertension Transaminitis Discharge disposition - Home - Azithromycin 500 mg p.o. daily for 5 days, prednisolone 40 mg daily for 5 days, Tamiflu 30 mg b.i.d. for 5 days, Acetaminophen- hydrocodone ( 5/325 mg) 1 tab PO TID p.r.n. for 5 days and Protonix 40 mg p.o. daily for 1 month and adviced continue home meds - Advised to follow up with DC clinic in 1 week and with PCP in 1-2 weeks Consults/Reason for consult No consultation was done Operations or Procedures Examination: CTACH CLINICAL INDICATION: Aorta . COMPARISON: None. CONTRAST USED: Intravenous. TECHNIQUE: Axial images were obtained through the thorax with contrast. Appropriate 3D, MPR, CMPR, thick and thin MIP and VRT view were obtained from multiple phase reconstructions. CT scan done according to ALARA (As Low as Reasonably Achievable). Multiplanar reconstructions were obtained. FINDINGS: Lower neck and thyroid: Appears normal. The aorta appears normal. No evidence of aneurysm or dissection is seen. No mediastinal masses or lymphadenopathy is seen. Central pulmonary arteries appear unremarkable. The right and left main pulmonary arteries appear normal. No evidence of filling defect is seen. Centriacinar and paraseptal emphysematous changes are seen in both lungs. Few subpleural bullae are seen in both upper lobes. Rest of the lung parenchyma appears unremarkable. No pleural effusion is seen. No pericardial effusion is seen. Degenerative changes are seen in the thoracic spine. Visualized Upper Abdomen: Visualized upper abdominal structures appear unremarkable. Gallbladder: Appears normal. No radiopaque calculi. Adrenal glands: Appear normal. No obvious nodule. Liver: Appears normal. No obvious focal lesion. Spleen: Appears normal. Pancreas: Appears normal. Kidneys: Appear normal. IMPRESSION: 1. No evidence of pulmonary arterial thromboembolism. 2. No evidence of aortic aneurysm or dissection is seen. 3. Centriacinar and paraseptal emphysematous changes are seen in both lungs. 4. Few subpleural bullae are seen in both upper lobes. 5. Additional chronic and/or ancillary findings as detailed above. 6. Suggest clinical correlation and follow-up as clinically deemed necessary. Examination: CXR1 Clinical Indication: cp. Comparison: None. Technique: Frontal radiograph of the chest was obtained. Findings: Limited evaluation, due to patients body habitus. Inhomogeneous radiopacities in right lower lung, suggestive of patchy consolidation. No pleural effusion on either side in current study. There is no pneumothorax. No evidence of cardiomegaly. Ectatic thoracic aorta. No acute osseous abnormality is seen. Impression: Patchy consolidation in right lower lung. Advised further evaluation with CT chest without contrast, if clinically indicated. Condition at Discharge: Stable Final Diagnosis/Problems List Acute exacerbation of COPD Pneumonia, likely due to Gram-positive Gram-negative bacterial/viral chronic hypoxic respiratory, likely due to COPD Sepsis, likely due to pneumonia Possoble Gastritis, likely due to Ibuprofen Discharge Disposition: Home Discharge Instruct/Medications Diet: Regular Activity: No Restrictions, As Tolerated Follow Up/Referral: Follow up with the DC clinic in 1 week Follow up with the PCP in 1 to 2 week. Medications: Azithromycin 500 mg daily for 5 days Prednisolone 40 mg b.i.d. for 5 days Tamiflu 30 mg b.i.d. for 5 days Protonix 40 mg daily for 1 month Discharge Statement: "Patient was advised to return to the ER or call 911 if any headaches, dizziness, shortness of breath, chest pain, abdominal pain, bleeding, fevers, or worsening of medical condition. Patient was counseled about treatment plan, medications, possible side effects, patientverbalized understanding. All questions were answered to the best of my ability. This discharge took greater then 30 minutes in planning, reviewing documentation, counseling the patient, and discussing with other team members." ASSESSMENT ASSESSMENT Assessment Acute exacerbation of COPD Pneumonia, likely due to Gram-positive Gram-negative bacterial/viral chronic hypoxic respiratory, likely due to COPD Sepsis, likely due to pneumonia Possoble Gastritis, likely due to Ibuprofen Date of Service: Sep 23, 2024 Billing Provider: EDUARDO QUIJANO MD Common Visit Codes: 91804-JFY/OBS DISCH DAY >30min YOAN CALVIN RESIDENT Sep 23, 2024 19:08 EDUARDO QUIJANO MD Sep 24, 2024 16:30
[2024-09-23] MEDS ORDERED: MONTELUKAST SODIUM 10 MG TAB PO SCH (22:00)
[2024-09-24] MEDS ORDERED: cefTRIAXone 1GM/50ML D5W 50 ML IV SCH (03:00)
== END 2024-09-23 17:20 | disposition home or self-care (01) | DRG 871 ==
LOC: ER 00:16 → EDBD 00:16 → OVERFLOW 05:25 → CENTRAL 15:09
PROVIDERS: ADMIT Student in an Organized Health Care Education/Training Program; ATTEND Student in an Organized Health Care Education/Training Program
DX: A41.9 Sepsis, unspecified organism (principal); J12.9 Viral pneumonia, unspecified; J15.69 Pneumonia due to other Gram-negative bacteria; J15.9 Unspecified bacterial pneumonia; J44.0 Chronic obstructive pulmonary disease with (acute) lower respiratory infection; J44.1 Chronic obstructive pulmonary disease with (acute) exacerbation; J96.11 Chronic respiratory failure with hypoxia; Z20.822 Contact with and (suspected) exposure to COVID-19; I10 Essential (primary) hypertension; K29.70 Gastritis, unspecified, without bleeding; R74.01 Elevation of levels of liver transaminase levels; T39.315A Adverse effect of propionic acid derivatives, initial encounter; Z87.891 Personal history of nicotine dependence; Y92.89 Other specified places as the place of occurrence of the external cause
CPT/HCPCS: 36415; 71045; 71275; 80053; 83605; 83690; 83735; 83880; 84484; 85025; 87040; 87426; 87804; 93005; 94640; G0378; G9035; J2470